=== PATIENT | female | born 1990 ===

== ENCOUNTER 2024-12-04 12:34 | Emergency (ER) | payer BC ==
[2024-12-04 13:02] LABS: BASOPHILS ABSOLUTE AUTO 0.02 K/uL (0.00-0.20); BASOPHILS PERCENT AUTO 0.1 % (0.0-2.0); HEMATOCRIT 38.6 % (34.0-46.0); HEMOGLOBIN 13.2 g/dL (11.7-15.5); IMMATURE GRAN ABSOLUTE AUTO 0.02 10^3/uL (0.00-0.04); IMMATURE GRAN PERCENT AUTO 0.1 % (0.0-0.4); LYMPHOCYTES ABSOLUTE AUTO 1.01 K/uL (0.50-3.50); LYMPHOCYTES PERCENT AUTO 6.8 % (10.0-50.0); MEAN CORPUSCULAR HEMOGLOBIN 26.6 pg (28.2-33.3); MEAN CORPUSCULAR HGB CONC 34.2 g/dL (31.7-36.0); MEAN CORPUSCULAR VOLUME 77.7 fL (84.0-98.0); MONOCYTES ABSOLUTE AUTO 0.56 K/uL (0.00-1.00); MONOCYTES PERCENT AUTO 3.8 % (2.0-14.0); NEUTROPHILS ABSOLUTE AUTO 13.26 K/uL (1.40-7.00); NEUTROPHILS PERCENT AUTO 89.2 % (45.0-80.0); PLATELET COUNT,PLT 186 K/uL (150-350); RED BLOOD CELL COUNT 4.97 M/uL (3.77-5.09); RED CELL DISTRIBUTION WIDTH 15.3 % (11.2-14.1); WHITE BLOOD CELL COUNT,WBC 14.9 K/uL (4.0-10.2)
[2024-12-04] MEDS: Sodium Chloride 0.9% 1,000 ML IV SCH ×2 (13:12→19:06)
[2024-12-04] MEDS: Ondansetron 4 MG/2 ML SDV IVPUSH ONE ×2 (13:12→17:46)
[2024-12-04 13:24] LABS: INR 0.9 (0.9-1.1); PROTHROMBIN TIME 9.5 SEC (9.0-11.1); PTT,PARTIAL THROMBOPLSTIN TIME 27.8 SEC (23.8-34.4)
[2024-12-04 13:31] LABS: ALANINE AMINOTRANSFERASE,ALT 54 U/L (12-78); ALBUMIN 2.8 g/dL (3.4-5.0); ALKALINE PHOSPHATASE 121 IU/L (46-116); ANION GAP 9.7 meq/L (7-15); ASPARTATE AMNIOTRANSFERASE,AST 107 U/L (15-37); BILIRUBIN TOTAL 1.1 mg/dL (0.2-1.0); BLOOD UREA NITROGEN,BUN 7 mg/dL (7-18); CALCIUM 9.2 mg/dL (8.5-10.1); CARBON DIOXIDE,CO2 24.3 mmol/L (21.0-32.0); CHLORIDE,CL 102 mmol/L (98-107); CREATININE 0.51 mg/dL (0.51-1.17); ESTIMATED GFR 124 mL/min (>=60); GLUCOSE RANDOM 133 mg/dL (70-99); POTASSIUM,K 3.7 mmol/L (3.5-5.1); PRO B-TYPE NATRIUR PEPT,BNPPRO 25 pg/mL (0-125); PROTEIN TOTAL,TP 7.9 g/dL (6.4-8.2); SODIUM,NA 136 mmol/L (136-145)
[2024-12-04 14:08] LABS: LACTIC ACID 1.2 mmol/L (0.4-2.0)
[2024-12-04] MEDS: Aluminum Hydroxide/Magnesium Hydroxide/Simethicone Susp 30 ML Cup PO ONE (14:10)
[2024-12-04] MEDS: Lidocaine 2% Viscous Solution 15 ML UD PO ONE (14:12)
[2024-12-04] MEDS ORDERED: Take Home: Ondansetron 4 MG Tab.DIS, 5 Tab Pack PO ONE (17:50)
[2024-12-04] MEDS: Sodium Chloride 0.9% 10 ML Syringe FLUSH PRN (17:53)
[2024-12-04] MEDS: Pantoprazole 40 MG Vial IVPUSH ONE (18:27)
[2024-12-04 18:59] LABS: APPEARANCE,URINE CLEAR; BILIRUBIN,URINE NEGATIVE (NEGATIVE); COLOR,URINE DARK YELLOW; GLUCOSE,URINE NEGATIVE (NEGATIVE); KETONES,URINE 80 mg/dL (NEGATIVE); LEUKOCYTE ESTERASE,URINE NEGATIVE (NEGATIVE); NITRITE,URINE NEGATIVE (NEGATIVE); OCCULT BLOOD,URINE TRACE-INTACT (NEGATIVE); PROTEIN,URINE 30 mg/dL (NEGATIVE); UROBILINOGEN,URINE 0.2 E.U./dL (0.2-1.0)
[2024-12-04 19:05] LABS: RBC,URINE 0-5 /HPF; WBC,URINE 0-5 /HPF
[2024-12-04] MEDS ORDERED: Naloxone 0.4 MG/ML SDV IVPUSH PRN (19:38)
[2024-12-04 19:51] VITALS: BP 120/77; PULSE 98
[2024-12-04] MEDS: HYDROmorphone 0.5 MG/0.5 ML Syringe IVPUSH ONE (20:02)
== END 2024-12-04 20:15 ==
LOC: LL.ED 12:34
DX: O99.612 Diseases of the digestive system complicating pregnancy, second trimester (principal); K80.20 Calculus of gallbladder without cholecystitis without obstruction; K85.90 Acute pancreatitis without necrosis or infection, unspecified; Z3A.26 26 weeks gestation of pregnancy; Z79.82 Long term (current) use of aspirin; Z79.899 Other long term (current) drug therapy
CPT/HCPCS: 36415; 76705; 80053; 81001; 83605; 83690; 83880; 84484; 85025; 85610; 85730; 86140; 87428-QW; 93005; 93010; 96361; 96374; 96375; 96376; 99284; 99284-25; A9270-GY; J2405; J2470; J7030